=== PATIENT | female | born 1995 | race Caucasian/White ===

== ENCOUNTER 2022-09-03 10:23 | Outpatient (CLI) | payer OTHER | END 2022-09-03 10:29 | disposition home or self-care (01) | LOC: LAB 10:23 | DX: M25.562 Pain in left knee (principal) ==

== ENCOUNTER 2022-09-17 09:58 | Outpatient (CLI) | payer OTHER | END 2022-09-17 10:04 | disposition home or self-care (01) | LOC: LAB 09:58 | DX: E03.9 Hypothyroidism, unspecified (principal); D50.9 Iron deficiency anemia, unspecified; R74.02 Elevation of levels of lactic acid dehydrogenase [LDH]; R11.0 Nausea; M25.50 Pain in unspecified joint; M25.461 Effusion, right knee ==

== ENCOUNTER 2022-10-11 09:08 | Outpatient (CLI) | payer OTHER | END 2022-10-11 09:10 | disposition home or self-care (01) | LOC: SONOGRAMA 09:08 | DX: N83.202 Unspecified ovarian cyst, left side (principal) ==

== ENCOUNTER 2022-10-29 14:47 | Outpatient (CLI) | payer OTHER | END 2022-10-29 14:53 | disposition home or self-care (01) | LOC: RAD 14:47 | DX: M06.00 Rheumatoid arthritis without rheumatoid factor, unspecified site (principal) ==

== ENCOUNTER → 2023-01-25 09:41 | Outpatient (CLI) | payer OTHER | END | disposition home or self-care (01) | LOC: LAB 09:41 | DX: M06.00 Rheumatoid arthritis without rheumatoid factor, unspecified site (principal) ==

== ENCOUNTER 2023-01-29 21:42 | Emergency (ER) | payer OTHER ==
[~2023-01-29] VITALS: Ht 170.2 cm; Wt 53.5 kg
[2023-01-29] MEDS ORDERED: AVIANE-28 TABL1 EACH (21:52)
== END 2023-01-30 00:14 | disposition home or self-care (01) ==
LOC: ER 21:42
DX: N39.0 Urinary tract infection, site not specified (principal)

== ENCOUNTER 2023-09-25 16:03 | Outpatient (CLI) | payer OTHER ==
[~2023-09-25 16:03] MED LIST: AVIANE-28 TABL1 EACH
== END 2023-09-25 16:10 | disposition home or self-care (01) ==
LOC: LAB 16:03
PROVIDERS: ATTEND Otolaryngology Otology & Neurotology
DX: J03.90 Acute tonsillitis, unspecified (principal)

== ENCOUNTER → 2024-04-27 | Emergency (ER) | payer OTHER | END | disposition left against medical advice (07) | LOC: ER 20:12 | DX: Z53.21 Procedure and treatment not carried out due to patient leaving prior to being seen by health care provider (principal) ==

== ENCOUNTER 2024-04-28 15:59 | Outpatient (CLI) | payer OTHER ==
[2024-04-28 17:18] LABS: PH,URINE 6.5 (5.0-8.0); URINE APPEARANCE Clear; URINE BILIRRUBIN Negative (NEGATIVE); URINE BLOOD Small; URINE COLOR Yellow; URINE GLUCOSE Negative (NEGATIVE); URINE KETONE Negative (NEGATIVE); URINE LEUKOCYTE Trace; URINE NITRATE Negative; URINE PROTEIN Negative (NEGATIVE); URINE UROBILINOGEN 0.2 E.U./dl
[2024-04-28 17:21] LABS: URINE BACTERIA 18.8 uL (0.0-1933); URINE EPITHELIAL CELLS 9.7 uL (0.0-38.8); URINE RBC 27.9 uL (0.0-20.8); URINE WBC 35.4 uL (0.0-23.2)
== END 2024-04-28 16:08 | disposition home or self-care (01) ==
LOC: LAB 15:59
DX: E55.9 Vitamin D deficiency, unspecified (principal); N73.9 Female pelvic inflammatory disease, unspecified; A60.04 Herpesviral vulvovaginitis; Z34.90 Encounter for supervision of normal pregnancy, unspecified, unspecified trimester; Z20.2 Contact with and (suspected) exposure to infections with a predominantly sexual mode of transmission; N91.2 Amenorrhea, unspecified; E78.5 Hyperlipidemia, unspecified; E34.9 Endocrine disorder, unspecified; N95.1 Menopausal and female climacteric states; E23.6 Other disorders of pituitary gland; R19.00 Intra-abdominal and pelvic swelling, mass and lump, unspecified site; N39.0 Urinary tract infection, site not specified; N63.20 Unspecified lump in the left breast, unspecified quadrant